=== PATIENT | male | born 1950 | race Caucasian/White ===

== ENCOUNTER 2016-09-25 09:45 | Emergency (ER) | payer OTHER ==
[~2016-09-25] VITALS: Ht 177.8 cm; Wt 74.4 kg
--- NOTE | ~2016-09-25 | CT4 ---
[facility] A Service of [facility] & [facility] RADIOLOGY TEXT RESULTS PATIENT: ROSALES DO LOCATION: [facility] : 54 UNIT #: [id number] AGE: [address]: Parish Mcclellan MD SEX: M ORDER DR: [id number] [facility] [address] [place], [place] [address] [id number] MR#: [id number] Acc #: [id number] NAME: ROSALES DO : 1950 SEX: M STUDY DATE/TIME: 09/25/2016 11:28 UNIT: NBA ROOM: STUDY DESCRIPTION: CT Abd and Pelv Wo Cont Attending Physician: Parish Mcclellan M.D. Ordering Physician: Parish Mcclellan M.D. Primary Care Physician: Gisel Beckham M.D. MEDICAL IMAGING REPORT This report is preliminary unless electronic signature is present EXAM CT abdomen and pelvis without contrast, 09/25/2016, 1128 hours. CLINICAL HISTORY Right groin pain with nausea since 09/24/2016. COMPARISON 12/19/2010 TECHNIQUE Helical noncontrasted images were obtained from the lung bases through the pubic symphysis without oral or intravenous contrast. Sagittal and coronal reconstructions were performed. Total exam DLP 705 mGy-cm. This CT exam was performed with one or more of the following radiation dose reduction techniques: automatic exposure control, adjustment of mA and/or kV according to patient size, and iterative reconstruction. FINDINGS Images through the lung bases are clear of acute densities. Calcified granuloma at the right base is unchanged. Images through the abdomen without contrast demonstrate calcified granulomata in the liver and spleen. There is no focal liver lesion. The gallbladder is surgically absent. There is mild fatty atrophy of the pancreas but no acute inflammation. The bile ducts and adrenal glands are normal. The right kidney contains no stones. There is a nonobstructing stone in the lower pole left kidney measuring 9 mm. There is no definite pelvocaliectasis. The right ureter is only minimally prominent relative to the left, however, there is a 6 x 6 mm stone in the distal right ureter, approximately 1.5 cm cephalad to the right ureterovesical STS. [facility] A Service of [facility] & [facility] / [facility] RADIOLOGY TEXT RESULTS [facility]: [id number] 54 UNIT #: [id number] AGE: [address]: Parish Mcclellan MD SEX: M ORDER DR: junction. This results in low-grade obstruction. The bladder is normal. Stomach and small bowel are normal. There is evidence of colonic diverticulosis, most prominently involving the sigmoid colon. There is no wall thickening or acute inflammation. There are fat density inguinal herniae, left greater than right. The appendix is normal. IMPRESSION 1. There is a 6 mm distal right ureteral calculus 1.5 cm above the right ureterovesical junction resulting in minimal obstruction with minimal right ureterectasis relative to the left and no significant dilatation of the renal pelvis. 2. 9 mm nonobstructing stone in the lower pole left kidney. 3. Normal appendix. 4. Extensive diverticulosis of the sigmoid colon without evidence of acute diverticulitis. 5. Small fat density bilaterally inguinal herniae. No bowel involvement is seen. STAT * RESULT Dictated by... Leigha Howard M.D. THIS IS AN ELECTRONICALLY VERIFIED REPORT Leigha Howard M.D. at 09/25/2016 2:29 PM JP/tomasz TD: 09/25/2016 12:01 JOB #: [id number] MEDICAL IMAGING REPORT Page 1 of 1 COPY
[~2016-09-25 09:45] MED LIST: AMBIEN10 MG PO; CELECOXIB200 M1 PO; CLOPIDOGREL75 MG PO; CYMBALTA PO; DULOXETINE HCL60 M1 PO; DULOXETINE HCL60 MG PO; FLOMAX0.4 M1 PO; FLOMAX0.4 MG PO; FLUOXETINE HCL20 M1 PO; INDERAL20 MG PO; INDERAL60 MG PO; KEPPRA500 M2 PO; LIPITOR PO; LIPITOR40 MG PO; OMEPRAZOLE20 M2 PO; OMEPRAZOLE40 M1 PO; OXYCODON HCL-AP1 TA2 PO; OXYCONTIN20 MG PO; PERCOCET 10/3251 TAB PO; PERCOCET PO; PRILOSEC PO; PRILOSEC40 MG PO; PROSCAR5 MG PO; ULTRAM; VICODIN 5/500 T1 TAB
[2016-09-25 10:21] LABS: BASOPHIL# 0.1 X10e3 (0-0.3); BASOPHIL% 0.8 % (0-2.5); EOSINOPHIL# 0.1 X10e3 (0-0.7); EOSINOPHIL% 0.9 % (0.0-7.0); HEMATOCRIT 46.8 % (38.0-50.0); HEMOGLOBIN 16.5 gm/dL (13.0-16.0); LYMPHOCYTE# 0.8 X10e3 (1.0-3.5); LYMPHOCYTE% 12.2 % (17.0-45.0); MEAN CELL VOLUME 82.5 FL (83-96); MEAN CORPUSCULAR HEMOGLOBIN 29.1 PG (28-34); MEAN CORPUSCULAR HGB CONC 35.2 g/dL (30-36); MONOCYTE# 0.5 X10e3 (0-1.0); MONOCYTE% 6.8 % (3.0-12.0); NEUTROPHIL# 5.5 X10e3 (1.5-7.1); NEUTROPHIL% 79.3 % (40-75); PLATELET COUNT 223 X10e3 (140-420); RED BLOOD COUNT 5.67 X10e (3.90-5.60); RED CELL DISTRIBUTION WIDTH 13.3 % (11.0-15.5); WHITE BLOOD COUNT 6.9 X10e3 (4.0-10.5)
[2016-09-25 10:27] LABS: DIFF IND NO
[2016-09-25 10:45] LABS: ALBUMIN SERUM 4.7 g/dL (3.5-5.0); BILIRUBIN, DIRECT 0.4 mg/dL (0.0-0.2); BILIRUBIN,INDIRECT 1.9 mg/dL (0.0-0.9); BILIRUBIN,TOTAL 2.3 mg/dL (0.2-2.0); BUN/CREATININE RATIO 12.5; CALCIUM SERUM 9.6 mg/dL (8.4-10.2); CREATININE SERUM 1.2 mg/dL (0.6-1.4); GLOM FILT RATE Estimated 63.5 mL/min (>60); POTASSIUM 3.5 mmol/L (3.5-5.1); PROTEIN TOTAL SERUM 7.2 g/dL (6.0-8.3)
[2016-09-25 12:29] LABS: URINE SOURCE CLEAN CATCH
[2016-09-25 12:34] LABS: URINE APPEARANCE CLEAR; URINE BILIRUBIN NEG (NEG); URINE BLOOD TRACE (NEG); URINE COLOR YELLOW; URINE GLUCOSE NEG (NEG); URINE KETONE NEG (NEG); URINE LEUKOCYTE ESTERASE NEG (NEG); URINE NITRATE NEG (NEG); URINE PROTEIN NEG (NEG); URINE SPECIFIC GRAVITY 1.008 (1.003-1.035); URINE UROBILINOGEN 0.2 MG/DL (NEG)
[2016-09-25 12:37] LABS: U HYALINE CASTS AUWI 0-2 /[LPF]; URBCS1 AUWI 0-2 /[HPF] (0-2); URINE BACTERIA AUWI NEG (NEGATIVE); URINE SQUAMOUS EPITHELIAL CELL NONE SEEN /[HPF]; UWBCS1 AUWI 0-2 (0-5)
== END 2016-09-25 12:59 | disposition home or self-care (01) ==
LOC: CED 09:45
PROVIDERS: Emergency Medicine
DX: N20.1 Calculus of ureter (principal); Z86.73 Personal history of transient ischemic attack (TIA), and cerebral infarction without residual deficits; Z87.442 Personal history of urinary calculi; Z90.49 Acquired absence of other specified parts of digestive tract
CPT/HCPCS: 36415; 74176; 80048; 80076; 81003; 82150; 83690; 85025; 96361; 96374; 96375; 96376; 99284; J1885; J2270; J2550

== ENCOUNTER 2016-10-02 21:21 | Emergency (ER) | payer OTHER ==
[~2016-10-02] VITALS: Ht 177.8 cm; Wt 79.4 kg
--- NOTE | ~2016-10-02 | CT4 ---
[facility] A Service of [facility] & [facility] RADIOLOGY TEXT RESULTS PATIENT: ROSALES DO LOCATION: [facility] : 54 UNIT #: [id number] AGE: [address]: Geovanny Eckert MD SEX: M ORDER DR: [id number] [facility] [address] [place], [place] [address] [id number] E MR#: [id number] Acc #: [id number] NAME: ROSALES DO : 1950 SEX: M STUDY DATE/TIME: 10/03/2016 0:46 UNIT: NBA ROOM: STUDY DESCRIPTION: CT Abd and Pelv Wo Cont Attending Physician: Geovanny Eckert M.D. Ordering Physician: Geovanny Eckert M.D. Primary Care Physician: Gisel Beckham M.D. MEDICAL IMAGING REPORT This report is preliminary unless electronic signature is present EXAM CT abdomen and pelvis without contrast HISTORY Right flank pain today. Obstructing right ureteral stone on CT 09/25/2016. TECHNIQUE This CT exam was performed with one or more of the following radiation dose reduction techniques: automatic exposure control, adjustment of mA and/or kV according to patient size, and iterative reconstruction. FINDINGS CT abdomen and pelvis was performed without contrast. The exam is compared to CT 09/25/2016. CT ABDOMEN: Moderate right hydronephrosis and moderate right perinephric stranding have both increased compared to the prior CT. There is now [id number] right ureteral dilatation. Nonobstructing stones in the lower pole left kidney measure up to 6.0 mm. Cholecystectomy. The liver and adrenal glands are normal. Mild splenomegaly measuring nearly 15.0 cm in length. Splenic artery aneurysm measures 12.0 mm. Diffuse fatty replacement of the pancreas. No bowel dilatation. CT PELVIS: 6.0 mm obstructing stone in the distal right ureter, 3.0 cm above the ureterovesical junction is stable compared to the prior CT. The bladder is decompressed. Moderately extensive sigmoid diverticulosis. No diverticulitis. No free fluid. No bowel dilatation. IMPRESSION 1. Stable position of the 6.0 mm stone in the distal right ureter 3.0 cm above the ureterovesical junction. This is unchanged compared to prior CT 09/25/2016. 2. Moderate right hydronephrosis and right ureteral dilatation [facility] of [facility] & [facility] RADIOLOGY TEXT RESULTS PATIENT: ROSALES DO LOCATION: [facility] : 54 UNIT #: [id number] AGE: [address]: Geovanny Eckert MD SEX: M ORDER DR: increased since the prior study and there is now moderate right perinephric stranding which has increased since the prior study is well. 3. No acute findings on the remainder of the exam. Stable mild splenic enlargement. 4. 12.0 mm splenic artery aneurysm. 5. Sigmoid diverticulosis but no diverticulitis. Dictated by... Jeovanny Balderrama M.D. THIS IS AN ELECTRONICALLY VERIFIED REPORT Jeovanny Balderrama M.D. at 10/04/2016 4:16 AM Walt TD: 10/03/2016 08:54 JOB #: [id number] MEDICAL IMAGING REPORT Page 1 of 1 COPY
[2016-10-03 00:17] LABS: BASOPHIL# 0.1 X10e3 (0-0.3); BASOPHIL% 0.6 % (0-2.5); EOSINOPHIL# 0.1 X10e3 (0-0.7); EOSINOPHIL% 0.7 % (0.0-7.0); HEMATOCRIT 42.1 % (38.0-50.0); HEMOGLOBIN 14.4 gm/dL (13.0-16.0); LYMPHOCYTE% 10.6 % (17.0-45.0); MEAN CELL VOLUME 83.8 FL (83-96); MEAN CORPUSCULAR HEMOGLOBIN 28.7 PG (28-34); MEAN CORPUSCULAR HGB CONC 34.2 g/dL (30-36); MEAN PLATELET VOLUME 8.1 FL (6.5-11.5); MONOCYTE# 0.6 X10e3 (0-1.0); MONOCYTE% 7.1 % (3.0-12.0); NEUTROPHIL# 7.4 X10e3 (1.5-7.1); PLATELET COUNT 173 X10e3 (140-420); RED BLOOD COUNT 5.02 X10e (3.90-5.60); RED CELL DISTRIBUTION WIDTH 13.3 % (11.0-15.5); WHITE BLOOD COUNT 9.2 X10e3 (4.0-10.5)
[2016-10-03 00:18] LABS: DIFF IND NO
[2016-10-03 00:22] LABS: URINE SOURCE CLEAN CATCH
[2016-10-03 00:27] LABS: URINE APPEARANCE CLEAR; URINE BILIRUBIN NEG (NEG); URINE BLOOD 2+ (NEG); URINE COLOR YELLOW; URINE GLUCOSE NEG (NEG); URINE KETONE 2+ (NEG); URINE LEUKOCYTE ESTERASE NEG (NEG); URINE NITRATE NEG (NEG); URINE PROTEIN NEG (NEG)
[2016-10-03 00:28] LABS: URINE BACTERIA AUWI NEG (NEGATIVE); URINE SQUAMOUS EPITHELIAL CELL NONE SEEN /[HPF]; UWBCS1 AUWI 0-2 (0-5)
[2016-10-03 00:30] LABS: CULTURE INDICATED? NO
[2016-10-03 00:43] LABS: ALBUMIN SERUM 4.3 g/dL (3.5-5.0); BILIRUBIN, DIRECT 0.4 mg/dL (0.0-0.2); BILIRUBIN,INDIRECT 1.7 mg/dL (0.0-0.9); BILIRUBIN,TOTAL 2.1 mg/dL (0.2-2.0); BUN/CREATININE RATIO 13.75; CALCIUM SERUM 9.2 mg/dL (8.4-10.2); CREATININE SERUM 1.6 mg/dL (0.6-1.4); GLOM FILT RATE Estimated 44.9 mL/min (>60); POTASSIUM 3.5 mmol/L (3.5-5.1); PROTEIN TOTAL SERUM 6.6 g/dL (6.0-8.3)
== END 2016-10-03 02:24 | disposition home or self-care (01) ==
LOC: CED 21:21
DX: R10.9 Unspecified abdominal pain (principal); Z86.73 Personal history of transient ischemic attack (TIA), and cerebral infarction without residual deficits; Z87.442 Personal history of urinary calculi; Z90.49 Acquired absence of other specified parts of digestive tract; Z88.5 Allergy status to narcotic agent; Z79.899 Other long term (current) drug therapy
CPT/HCPCS: 36415; 74176; 80048; 80076; 81003; 83690; 85025; 96361; 96374; 96375; 99284; J1885; J2405